=== PATIENT | male | born 1970 | race Caucasian/White ===

== ENCOUNTER 2016-10-15 13:36 | Observation (INO) | payer OTHER ==
[~2016-10-15] VITALS: Ht 182.9 cm; Wt 106.8 kg
[~2016-10-15 13:36] MED LIST: CYCL5TAB PO; HYDR-2758 PO; SIMV5TAB PO; ZOLP5TAB PO
[2016-10-15 14:18] LABS: BASO # 0.1 x10^3/uL (0.0-0.2); BASO % 1 % (0-3); EOS % 1 % (0-3); HEMATOCRIT 43.6 % (39.0-53.0); HEMOGLOBIN 14.8 g/dL (13.0-17.5); LYMPH # 1.9 x10^3/uL (1.0-4.8); LYMPH % 17 % (24-48); MEAN CORPUSCULAR HEMOGLOBIN 31 pg (25-35); MEAN CORPUSCULAR HGB CONC 34 g/dL (31-37); MEAN CORPUSCULAR VOLUME 90 fL (79-100); MONO % 9 % (0-9); NEUT % 73 % (31-73); PLATELET COUNT 277 x10^3/uL (140-400); RED BLOOD COUNT 4.87 x10^6/uL (4.30-5.70); WHITE BLOOD COUNT 11.5 x10^3/uL (4.0-11.0)
[2016-10-15 14:29] LABS: CALCIUM 9.3 mg/dL (8.5-10.1); CREATININE 1.5 mg/dL (0.7-1.3); GFR 50.8
[2016-10-15 14:36] LABS: POTASSIUM 2.7 mmol/L (3.5-5.1)
--- NOTE | 2016-10-15 14:38 | RAD ---
Exam performed: 2 views of the chest. Indication: chest pain Date of Service:10/15/2016 4:06 PM . Comparison : None available Findings: PA and lateral radiographs of the chest reveal a normal cardiomediastinal contour. The lungs are clear. No pleural fluid is seen. The visualized osseous structures are unremarkable. Impression: Radiographically normal chest.
[2016-10-15] MEDS: NITROGLYCERIN SUBLINGUAL 0.4 MG BOTTLE OF 25. SL PRN ×5 (15:00→20:48)
[2016-10-15] MEDS ORDERED: ASPIRIN CHEWABLE 81 MG TABLET. PO ONE (15:00)
[2016-10-15] MEDS ORDERED: ONDANSETRON PF 4 MG/2 ML VIAL. IV ONE (15:15)
--- NOTE | 2016-10-15 15:24 | EKG ---
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
[2016-10-15] MEDS ORDERED: POTASSIUM CHLORIDE 20 MEQ TABLET.ER. PO ONE ×2 (15:30→22:00)
--- NOTE | 2016-10-15 15:33 | PHYS DOC ---
Past Medical History Past Medical History: Anxiety, Bipolar, Depression, High Cholesterol, Hypertension Additional Past Medical Histor: Right sciatica Past Surgical History: Other Additional Past Surgical Histo: vasectomy, right knee scope, lasik, HERNIA Alcohol Use: Occasionally Drug Use: None Adult General Chief Complaint Chief Complaint: CHEST PAIN HPI HPI Patient is a 45 year old male who presents with complaints of 5 left-sided chest pain radiating to the left side of his neck associated with shortness of breath. Patient experienced some pain that he describes as being exertional. He' s had at least 2 episodes today both of them associated with exertion. Patient denies any back pain, abdominal pain, lower extremity pain. Patient hasn't had any recent stress test or catheterization's. Patient has had multiple recent stressors, admits to suffering from anxiety. However the patient is most concerned about the fact that the pain was exertional. Currently rates the chest pain is a 2 Review of Systems Review of Systems Constitutional: Denies fever or chills [] HENT: Denies nasal congestion or sore throat [] Respiratory: Has shortness of breath initially but currently is at baseline Cardiovascular: No additional information not addressed in HPI [] GI: Denies abdominal pain, nausea, vomiting, bloody stools or diarrhea [] : Denies dysuria or hematuria [] Musculoskeletal: Denies back pain or joint pain [] Integument: Denies rash or skin lesions [] Neurologic: Denies headache, focal weakness or sensory changes [] Endocrine: Denies polyuria or polydipsia [] Current Medications Current Medications Current Medications Medications (Trade) Dose Ordered Sig/Anna Marie Start Time Stop Time Status Last Admin Dose Admin Aspirin (Children'S Aspirin) 324 mg 1X ONCE 10/15/16 15:00 10/15/16 15:01 DC 10/15/16 14:59 324 MG Nitroglycerin (Nitrostat) 0.4 mg PRN Q5MIN PRN 10/15/16 15:00 10/15/16 15:14 0.4 MG Ondansetron HCl (Zofran) 4 mg 1X ONCE 10/15/16 15:15 10/15/16 15:16 DC 10/15/16 15:10 4 MG Potassium Chloride (Klor-Con) 40 meq 1X ONCE 10/15/16 15:30 10/15/16 15:31 DC Allergies Allergies Allergies Coded Allergies Type Severity Reaction Last Updated Verified No Known Drug Allergies 12/23/15 No Physical Exam Physical Exam Constitutional: Well developed, well nourished, no acute distress, non-toxic appearance. [] HENT: Normocephalic, atraumatic, oropharynx moist, no oral exudates, nose normal. [] Eyes: EOMI, conjunctiva normal, no discharge. [] Neck: Normal range of motion, no tenderness, supple, no stridor. No JVD Cardiovascular:Heart rate regular rhythm, no murmur, normal perfusion, no peripheral edema Lungs & Thorax: Bilateral breath sounds clear to auscultation, no tachypnea Abdomen: Bowel sounds normal, soft, no tenderness, no masses, no pulsatile masses. [] Skin: Warm, dry, no erythema, no rash. [] Back: No tenderness, no CVA tenderness. [] Extremities: No tenderness, ROM intact, no edema, no signs of DVT Neurologic: Alert and oriented X 3, normal motor function, no focal deficits noted. [] Psychologic: Affect normal, judgement normal, mood normal. [] Current Patient Data Vital Signs Vital Signs Date Time Temp Pulse Resp B/P (MAP) Pulse Ox O2 Delivery O2 Flow Rate FiO2 10/15/16 15:20 97 16 107/57 (74) 93 Room Air 10/15/16 13:40 98.5 98.5 Lab Values Laboratory Tests Test 10/15/16 13:50 White Blood Count 11.5 x10^3/uL (4.0-11.0) H Red Blood Count 4.87 x10^6/uL (4.30-5.70) Hemoglobin 14.8 g/dL (13.0-17.5) Hematocrit 43.6 % (39.0-53.0) Mean Corpuscular Volume 90 fL (79-100) Mean Corpuscular Hemoglobin 31 pg (25-35) Mean Corpuscular Hemoglobin Concent 34 g/dL (31-37) Red Cell Distribution Width 13.0 % (11.5-14.5) Platelet Count 277 x10^3/uL (140-400) Neutrophils (%) (Auto) 73 % (31-73) Lymphocytes (%) (Auto) 17 % (24-48) L Monocytes (%) (Auto) 9 % (0-9) Eosinophils (%) (Auto) 1 % (0-3) Basophils (%) (Auto) 1 % (0-3) Neutrophils # (Auto) 8.5 x10^3uL (1.8-7.7) H Lymphocytes # (Auto) 1.9 x10^3/uL (1.0-4.8) Monocytes # (Auto) 1.0 x10^3/uL (0.0-1.1) Eosinophils # (Auto) 0.1 x10^3/uL (0.0-0.7) Basophils # (Auto) 0.1 x10^3/uL (0.0-0.2) D-Dimer (Devika) < 0.27 ug/mlFEU Sodium Level 139 mmol/L (136-145) Potassium Level 2.7 mmol/L (3.5-5.1) *L Chloride Level 98 mmol/L (98-107) Carbon Dioxide Level 26 mmol/L (21-32) Anion Gap 15 (6-14) H Blood Urea Nitrogen 10 mg/dL (8-26) Creatinine 1.5 mg/dL (0.7-1.3) H Estimated GFR (Cockcroft-Gault) 50.8 Glucose Level 108 mg/dL (70-99) H Calcium Level 9.3 mg/dL (8.5-10.1) Troponin I Quantitative < 0.017 ng/mL (0.000-0.055) Laboratory Tests 10/15/16 13:50 Laboratory Tests 10/15/16 13:50 EKG EKG 1345 sinus tachycardia, no stemi, 102 1532 85, SR, no stemi Radiology/Procedures Radiology/Procedures Noted this is an chest x-ray read by radiologist that is found to be unremarkable Course & Med Decision Making Course & Med Decision Making Pertinent Labs and Imaging studies reviewed. (See chart for details) and they have basically discussed with the patient and he is agreeable for admission. Patient had mild improvement after nitroglycerin but then pain returned and is currently still [address] Xander castelan for admission at 1541, call back at 1551 agrees with admission and requests consult w Dr Rogers. [] Dragon Disclaimer Dragon Disclaimer This electronic medical record was generated, in whole or in part, using a voice recognition dictation system. Departure Departure Impression: Primary Impression: Exertional chest pain Disposition: 09 ADMITTED INPATIENT Admitting Physician: Xander Darden Condition: STABLE Referrals: XANDER DARDEN MD (PCP) Iva SOARES MD Oct 15, 2016 15:33
--- NOTE | 2016-10-15 15:35 | EKG ---
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
[2016-10-15] MEDS ORDERED: MORPHINE SULFATE 2 MG/ML DISP.SYRIN. IV ONE (16:00)
[2016-10-15] MEDS ORDERED: ONDANSETRON PF 4 MG/2 ML VIAL. IV PRN (16:15)
[2016-10-15] MEDS ORDERED: MORPHINE SULFATE 2 MG/ML DISP.SYRIN. IV PRN (16:15)
[2016-10-15] MEDS ORDERED: ACETAMINOPHEN 325 MG TABLET. PO PRN (16:15)
[2016-10-15 17:23] VITALS: BP 119/77
[2016-10-15] MEDS ORDERED: LAMO200T PO (17:44)
[2016-10-15] MEDS ORDERED: TIZA4CAP3 PO (17:44)
[2016-10-15] MEDS ORDERED: ARIP5TAB13 PO (17:44)
[2016-10-15] MEDS ORDERED: VENL75CA PO (17:44)
[2016-10-15] MEDS ORDERED: LORA0.5T96 PO (17:44)
[2016-10-15] MEDS ORDERED: OMEP40CA5 PO (17:44)
[2016-10-15] MEDS ORDERED: LOSA1TAB16 PO (17:44)
[2016-10-15] MEDS ORDERED: BUSP30TA PO (17:44)
[2016-10-15] MEDS ORDERED: AMLO10TA2 PO (17:44)
[2016-10-15 19:00] VITALS: BP 118/78
[2016-10-15] MEDS ORDERED: ZOLPIDEM 5 MG TABLET. PO PRN (19:00)
[2016-10-15] MEDS ORDERED: tiZANidine 4 MG TABLET. PO PRN (19:00)
[2016-10-15] MEDS ORDERED: CYCLOBENZAPRINE 10 MG TABLET. PO PRN (19:00)
[2016-10-15] MEDS: LORazepam 0.5 MG TABLET PO SCH (20:43)
[2016-10-15] MEDS: busPIRone 10 MG TABLET. PO SCH (20:43)
[2016-10-15] MEDS ORDERED: ARIPiprazole 5 MG TABLET PO SCH (21:00)
[2016-10-15] MEDS ORDERED: SIMVASTATIN 10 MG TABLET PO SCH (21:00)
[2016-10-15] MEDS ORDERED: NITROGLYCERIN OINT 1 GM PACKET. TP ONE (22:00)
[2016-10-15 22:30] VITALS: BP 117/77
[2016-10-16 03:00] VITALS: BP 149/73
[2016-10-16 05:49] LABS: BASO % 1 % (0-3); EOS % 2 % (0-3); HEMATOCRIT 39.8 % (39.0-53.0); HEMOGLOBIN 14.3 g/dL (13.0-17.5); LYMPH # 2.7 x10^3/uL (1.0-4.8); LYMPH % 31 % (24-48); MEAN CORPUSCULAR HEMOGLOBIN 32 pg (25-35); MEAN CORPUSCULAR HGB CONC 36 g/dL (31-37); MEAN CORPUSCULAR VOLUME 88 fL (79-100); MONO % 10 % (0-9); NEUT % 56 % (31-73); PLATELET COUNT 251 x10^3/uL (140-400); RED BLOOD COUNT 4.51 x10^6/uL (4.30-5.70); RED CELL DISTRIBUTION WIDTH 13.3 % (11.5-14.5); WHITE BLOOD COUNT 8.5 x10^3/uL (4.0-11.0)
[2016-10-16 06:15] LABS: CALCIUM 8.9 mg/dL (8.5-10.1); CREATININE 1.4 mg/dL (0.7-1.3); GFR 55.1; POTASSIUM 4.1 mmol/L (3.5-5.1)
[2016-10-16 07:00] VITALS: BP 132/86
[2016-10-16] MEDS ORDERED: PANTOPRAZOLE 40 MG TABLET.DR. PO SCH (07:30)
[2016-10-16] MEDS: busPIRone 10 MG TABLET. PO SCH (08:39)
[2016-10-16] MEDS ORDERED: ARIPiprazole 5 MG TABLET PO SCH ×2 (09:00→21:00)
[2016-10-16] MEDS ORDERED: hydroCHLOROthiazide 12.5 MG CAPSULE PO SCH (09:00)
[2016-10-16] MEDS ORDERED: LOSARTAN POTASSIUM 50 MG TABLET. PO SCH (09:00)
[2016-10-16] MEDS ORDERED: amLODIPine BESYLATE 10 MG TABLET PO SCH (09:00)
[2016-10-16] MEDS ORDERED: SIMVASTATIN 10 MG TABLET PO SCH ×2 (09:00)
[2016-10-16] MEDS ORDERED: lamoTRIgine 100 MG TABLET. PO SCH (09:00)
[2016-10-16] MEDS: LORazepam 0.5 MG TABLET PO SCH ×2 (09:00→13:21)
[2016-10-16] MEDS ORDERED: VENLAFAXINE XR 37.5 MG CAP.ER.24H. PO SCH (09:00)
--- NOTE | 2016-10-16 09:02 | PDOC ---
Provider Note Provider Note [id number] XANDER DARDEN MD Oct 16, 2016 09:02
--- NOTE | 2016-10-16 09:26 | HP ---
ADMIT DATE: 10/15/2016 CHIEF COMPLAINT: Left-sided chest pain. HISTORY OF PRESENT ILLNESS: A 45-year-old white male with history of hypertension and bipolar disorder, has been having intermittent left-sided chest pain at rest over the last 2 weeks. The pain would come and go and not be radiating or associated with diaphoresis, heartburn, cough, nausea or any other symptoms. In the last few days, the chest pain has been exertional and relieved by rest and he came to the office for evaluation. EKG and exam was normal. He was sent to the ER for evaluation where the same exam and labs and EKG were done, and troponins have been negative x 3. He has had some mild chest pain over the last several hours, but no severe episodes. He does admit to a great deal of personal stress going on in his life at this time. PAST MEDICAL HISTORY: He takes multiple meds from a psychiatrist for bipolar disorder and anxiety. He is on antihypertensives for several years and simvastatin. No allergies. No surgery. No prior cardiac history. 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 FAMILY HISTORY: Unremarkable. No history of coronary artery disease or diabetes. REVIEW OF SYSTEMS: No other complaints. OBJECTIVE: ENT: All within normal limits. NECK: No masses, nodes or bruits. LUNGS: Clear. CARDIOVASCULAR: Regular rate. No irregular beat, murmur, rub or tachycardia. Chest wall is nontender. ABDOMEN: Benign, soft and nontender. EXTREMITIES: Unremarkable. Good pedal pulses. NEUROLOGIC: Physiologic. Mental status is mildly anxious, but appropriate, responsive and focal and oriented x 4. ASSESSMENT: Exertional chest pain, and otherwise relatively low risk factors. Could have coronary artery disease, but the odds seem low given his risk factor, statin use and antihypertensive control. He is also hypokalemic. Lots of recent personal stress could be contributing. PLAN: Stress echo, potassium replacement. XANDER DARDEN MD DR: KATARZYNA/emerson JOB#: [id number] / [id number]
[2016-10-16 13:10] VITALS: BP 126/81
--- NOTE | 2016-10-16 13:25 | PDOC2 ---
CONSULT Date of Consult Date of Consult DATE: 10/16/16 TIME: 13:17 Reason for Consult Reason for Consult: chest pain Referring Physician Referring Physician: Fredi Castano MD Identification/Chief Complaint Chief Complaint exertional chest pain Problems: History of Present Illness Reason for Visit: Mr. Arellano presents due to episodic chest pain at rest for 2 weeks radiating to the L. side of his neck assoc. with SOB. He has a history of HTN , hyperlipidemia, and GERD. He denies diaphoresis, heartburn, cough, nausea, or any other symptoms. However, over the last few days, it has been exertional in nature and relieved by rest. He states he has had 2 episodes today both associated with exertion. In the ED, EKG was normal and troponin x3 was undetectable. He admits to a lot of stress at this time in his life. He has a history of anxiety and bipolar disorder for which he takes multiple medications. He has never had anything like this before. He denies any significant cardiac history and denies recent stress test or catheterization, does not use tobacco or alcohol, and denies any hx of coronary artery disease, DBM, or any other disorders. Rates chest pain 2/10. Past Medical History Past Medical History Other: R. sciatica Cardiovascular: HTN, Hyperlipidemia GI: GERD Psych: Anxiety, Bipolar, Depression Past Surgical History Past Surgical History vasectomy, R. knee scope, lasik, hernia Social History No ALCOHOL: occassional Drugs: None Lives: with Family Current Problem List Problem List Problems Medical Problems: (1) Exertional chest pain Status: Acute Current Medications Current Medications Current Medications Aspirin (Children'S Aspirin) 324 mg 1X ONCE PO Last administered on 10/15/16 14:59; Start 10/15/16 at 15:00; Stop 10/15/16 at 15:01; Status DC Nitroglycerin (Nitrostat) 0.4 mg PRN Q5MIN PRN SL CHEST PAIN Last administered on 10/15/16 15:14; Start 10/15/16 at 15:00 Ondansetron HCl (Zofran) 4 mg 1X ONCE IV Last administered on 10/15/16 15:10 ; Start 10/15/16 at 15:15; Stop 10/15/16 at 15:16; Status DC Potassium Chloride (Klor-Con) 40 meq 1X ONCE PO Last administered on 16:08; Start 10/15/16 at 15:30; Stop 10/15/16 at 15:31; Status DC Morphine Sulfate 2 mg 1X ONCE IV Last administered on 10/15/16 16:09; Start 10/15/16 at 16:00; Stop 10/15/16 at 16:01; Status DC Ondansetron HCl (Zofran) 4 mg PRN Q8HRS PRN IV NAUSEA/VOMITING; Start 10/15/16 at 16:15; Stop 10/16/16 at 16:14 Morphine Sulfate 2 mg PRN Q2HR PRN IV PAIN Last administered on 10/15/16 19:21 ; Start 10/15/16 at 16:15; Stop 10/16/16 at 16:14 Acetaminophen (Tylenol) 650 mg PRN Q4HRS PRN PO FEVER; Start 10/15/16 at 16:15 ; Stop 10/16/16 at 16:14 Nitroglycerin (Nitrostat) 0.4 mg PRN Q5MIN PRN SL CHEST PAIN Last administered on 10/15/16 20:48; Start 10/15/16 at 16:15; Stop 10/16/16 at 16:14 Amlodipine Besylate (Norvasc) 10 mg DAILY PO ; Start 10/16/16 at 09:00 Aripiprazole (Abilify) 5 mg DAILY PO ; Start 10/16/16 at 09:00; Stop 10/16/16 at 09:00; Status DC Lorazepam (Ativan) 0.5 mg TID PO Last administered on 10/15/16 20:43; Start at 21:00 Simvastatin (Zocor) 10 mg QHS PO ; Start 10/15/16 at 21:00; Stop 10/15/16 at 21: 00; Status DC Zolpidem Tartrate (Ambien) 5 mg PRN QHS PRN PO INSOMNIA; Start 10/15/16 at 19: 00 Buspirone HCl (Buspar) 30 mg BID PO Last administered on 10/16/16 08:39; Start 10/15/16 at 21:00 Cyclobenzaprine HCl (Flexeril) 5 mg PRN TID PRN PO MUSCLE SPASMS; Start at 19:00 Lamotrigine (LaMICtal) 400 mg DAILY PO Last administered on 10/16/16 08:40; Start 10/16/16 at 09:00 Pantoprazole Sodium (Protonix) 40 mg DAILYAC PO Last administered on 10/16/16 08:38; Start 10/16/16 at 07:30 Tizanidine HCl (Zanaflex) 4 mg PRN Q8HRS PRN PO MUSCLE SPASMS; Start 10/15/16 at 19:00 Venlafaxine HCl (Effexor Xr) 75 mg DAILY PO Last administered on 10/16/16 08: 40; Start 10/16/16 at 09:00 Losartan Potassium (Cozaar) 50 mg DAILY PO ; Start 10/16/16 at 09:00 Hydrochlorothiazide (Microzide) 12.5 mg DAILY PO ; Start 10/16/16 at 09:00 Aripiprazole (Abilify) 5 mg DAILY PO Last administered on 10/15/16 21:00; Start 10/15/16 at 21:00; Stop 10/15/16 at 22:34; Status DC Simvastatin (Zocor) 10 mg QHS PO ; Start 10/16/16 at 09:00; Stop 10/16/16 at 09: 00; Status DC Potassium Chloride (Klor-Con) 20 meq 1X ONCE PO Last administered on 22:00; Start 10/15/16 at 22:00; Stop 10/15/16 at 22:01; Status DC Nitroglycerin (Nitro-Bid Oint) 0.5 inch 1X ONCE TP Last administered on 22:00; Start 10/15/16 at 22:00; Stop 10/15/16 at 22:01; Status DC Aripiprazole (Abilify) 5 mg HS PO ; Start 10/16/16 at 21:00 Simvastatin (Zocor) 10 mg DAILY PO ; Start 10/16/16 at 09:00 Active Scripts Active Cyclobenzaprine Hcl 5 Mg Tablet 1 Tab PO TID PRN Reported Ativan (Lorazepam) 0.5 Mg Tablet 0.5 Mg PO TID Abilify (Aripiprazole) 5 Mg Tablet 5 Mg PO Buspirone Hcl 30 Mg Tablet 1 Tab PO BID Effexor Xr (Venlafaxine Hcl) 75 Mg Cap.er.24h 1 Cap PO DAILY Lamotrigine 200 Mg Tablet 2 Tab PO DAILY Omeprazole 40 Mg Capsule.dr 1 Cap PO DAILY Losartan-Hctz 50-12.5 Mg Tab (Losartan/Hydrochlorothiazide) 1 Each Tablet Tab PO DAILY Amlodipine Besylate 10 Mg Tablet 10 Mg PO DAILY Zanaflex (Tizanidine Hcl) 4 Mg Capsule 4 Mg PO TID PRN Ambien (Zolpidem Tartrate) 5 Mg Tablet 5 Mg PO PRN QHS PRN Zocor (Simvastatin) 5 Mg Tablet 10 Mg PO DAILY Allergies Allergies: Coded Allergies: No Known Drug Allergies (Unverified , 12/23/15) ROS PSYCHOLOGICAL ROS: YES: Anxiety, Depression Cardiovascular: yes Chest Pain Physical Exam General: Alert, Cooperative, No acute distress HEENT: Atraumatic Lungs: Clear to auscultation Heart: Regular rate, Normal S1, Normal S2, No murmurs Abdomen: Normal bowel sounds Extremities: No clubbing, No cyanosis, No edema, Normal pulses, No tenderness/ swelling Skin: No significant lesion Neuro: Normal gait, Normal speech, Strength at 5/5 X4 ext Psych/Mental Status: Other (anxious) MUSCULOSKELETAL: No joint tenderness, No deformity, No swelling Vitals VITALS Vital Signs Date Time Temp Pulse Resp B/P (MAP) Pulse Ox O2 Delivery O2 Flow Rate FiO2 10/16/16 13:10 96.8 95 18 126/81 (96) 95 Room Air 96.8 Labs Labs Laboratory Tests Test 10/15/16 13:50 10/15/16 17:57 10/15/16 22:05 10/16/16 04:30 White Blood Count 11.5 x10^3/uL (4.0-11.0) 8.5 x10^3/uL (4.0-11.0) Red Blood Count 4.87 x10^6/uL (4.30-5.70) 4.51 x10^6/uL (4.30-5.70) Hemoglobin 14.8 g/dL (13.0-17.5) 14.3 g/dL (13.0-17.5) Hematocrit 43.6 % (39.0-53.0) 39.8 % (39.0-53.0) Mean Corpuscular Volume 90 fL (79-100) 88 fL (79-100) Mean Corpuscular Hemoglobin 31 pg (25-35) 32 pg (25-35) Mean Corpuscular Hemoglobin Concent 34 g/dL (31-37) 36 g/dL (31-37) Red Cell Distribution Width 13.0 % (11.5-14.5) 13.3 % (11.5-14.5) Platelet Count 277 x10^3/uL (140-400) 251 x10^3/uL (140-400) Neutrophils (%) (Auto) 73 % (31-73) 56 % (31-73) Lymphocytes (%) (Auto) 17 % (24-48) 31 % (24-48) Monocytes (%) (Auto) 9 % (0-9) 10 % (0-9) Eosinophils (%) (Auto) 1 % (0-3) 2 % (0-3) Basophils (%) (Auto) 1 % (0-3) 1 % (0-3) Neutrophils # (Auto) 8.5 x10^3uL (1.8-7.7) 4.8 x10^3uL (1.8-7.7) Lymphocytes # (Auto) 1.9 x10^3/uL (1.0-4.8) 2.7 x10^3/uL (1.0-4.8) Monocytes # (Auto) 1.0 x10^3/uL (0.0-1.1) 0.9 x10^3/uL (0.0-1.1) Eosinophils # (Auto) 0.1 x10^3/uL (0.0-0.7) 0.2 x10^3/uL (0.0-0.7) Basophils # (Auto) 0.1 x10^3/uL (0.0-0.2) 0.0 x10^3/uL (0.0-0.2) D-Dimer (Devika) < 0.27 ug/mlFEU Sodium Level 139 mmol/L (136-145) 141 mmol/L (136-145) Potassium Level 2.7 mmol/L (3.5-5.1) 4.1 mmol/L (3.5-5.1) Chloride Level 98 mmol/L (98-107) 102 mmol/L (98-107) Carbon Dioxide Level 26 mmol/L (21-32) 32 mmol/L (21-32) Anion Gap 15 (6-14) 7 (6-14) Blood Urea Nitrogen 10 mg/dL (8-26) 10 mg/dL (8-26) Creatinine 1.5 mg/dL (0.7-1.3) 1.4 mg/dL (0.7-1.3) Estimated GFR (Cockcroft-Gault) 50.8 55.1 Glucose Level 108 mg/dL (70-99) 91 mg/dL (70-99) Calcium Level 9.3 mg/dL (8.5-10.1) 8.9 mg/dL (8.5-10.1) Troponin I Quantitative < 0.017 ng/mL (0.000-0.055) < 0.017 ng/mL (0.000-0.055) < 0.017 ng/mL (0.000-0.055) Lactic Acid Level 0.9 mmol/L (0.4-2.0) Laboratory Tests Test 10/15/16 13:50 10/15/16 17:57 10/15/16 22:05 10/16/16 04:30 White Blood Count 11.5 x10^3/uL (4.0-11.0) 8.5 x10^3/uL (4.0-11.0) Red Blood Count 4.87 x10^6/uL (4.30-5.70) 4.51 x10^6/uL (4.30-5.70) Hemoglobin 14.8 g/dL (13.0-17.5) 14.3 g/dL (13.0-17.5) Hematocrit 43.6 % (39.0-53.0) 39.8 % (39.0-53.0) Mean Corpuscular Volume 90 fL (79-100) 88 fL (79-100) Mean Corpuscular Hemoglobin 31 pg (25-35) 32 pg (25-35) Mean Corpuscular Hemoglobin Concent 34 g/dL (31-37) 36 g/dL (31-37) Red Cell Distribution Width 13.0 % (11.5-14.5) 13.3 % (11.5-14.5) Platelet Count 277 x10^3/uL (140-400) 251 x10^3/uL (140-400) Neutrophils (%) (Auto) 73 % (31-73) 56 % (31-73) Lymphocytes (%) (Auto) 17 % (24-48) 31 % (24-48) Monocytes (%) (Auto) 9 % (0-9) 10 % (0-9) Eosinophils (%) (Auto) 1 % (0-3) 2 % (0-3) Basophils (%) (Auto) 1 % (0-3) 1 % (0-3) Neutrophils # (Auto) 8.5 x10^3uL (1.8-7.7) 4.8 x10^3uL (1.8-7.7) Lymphocytes # (Auto) 1.9 x10^3/uL (1.0-4.8) 2.7 x10^3/uL (1.0-4.8) Monocytes # (Auto) 1.0 x10^3/uL (0.0-1.1) 0.9 x10^3/uL (0.0-1.1) Eosinophils # (Auto) 0.1 x10^3/uL (0.0-0.7) 0.2 x10^3/uL (0.0-0.7) Basophils # (Auto) 0.1 x10^3/uL (0.0-0.2) 0.0 x10^3/uL (0.0-0.2) D-Dimer (Devika) < 0.27 ug/mlFEU Sodium Level 139 mmol/L (136-145) 141 mmol/L (136-145) Potassium Level 2.7 mmol/L (3.5-5.1) 4.1 mmol/L (3.5-5.1) Chloride Level 98 mmol/L (98-107) 102 mmol/L (98-107) Carbon Dioxide Level 26 mmol/L (21-32) 32 mmol/L (21-32) Anion Gap 15 (6-14) 7 (6-14) Blood Urea Nitrogen 10 mg/dL (8-26) 10 mg/dL (8-26) Creatinine 1.5 mg/dL (0.7-1.3) 1.4 mg/dL (0.7-1.3) Estimated GFR (Cockcroft-Gault) 50.8 55.1 Glucose Level 108 mg/dL (70-99) 91 mg/dL (70-99) Calcium Level 9.3 mg/dL (8.5-10.1) 8.9 mg/dL (8.5-10.1) Troponin I Quantitative < 0.017 ng/mL (0.000-0.055) < 0.017 ng/mL (0.000-0.055) < 0.017 ng/mL (0.000-0.055) Lactic Acid Level 0.9 mmol/L (0.4-2.0) Assessment/Plan Assessment/Plan Assessment: 1) Chest pain 2) HTN 3) Hyperlipidemia 4) Anxiety 5) GERD 6) Bipolar Plan: Chest pain is likely non-cardiac in nature, most likely related to anxiety and/ or GERD. EKG was unremarkable and troponin x3 was negative. Stress echo was negative for ischemia. It showed good hemodynamic response with good exercise tolerance, a normal LV EF with and without exertion. No segmental wall abnormalities were seen to suggest ischemia. I recommend that he follow up outpatient with GI regarding his GERD and continue to follow up with his psychiatrist regarding his anxiety. I have no further concerns at this time. Thank you for involving me in his care! LAURA VALDEZ MD Oct 16, 2016 13:25
--- NOTE | 2016-10-16 13:56 | CARD ---
APPROVED REPORT INDICATION Chest Pain Exertional chest pain RISK FACTORS Hypertension Hyperlipidemia Reason : Patient complained of pain PROCEDURE The patient underwent an exercise Stress Test using the Arias protocol. Blood pressure, heart rate, a nd EKG were monitored. An Echocardiogram was performed by landfill gas technician in four stages in quad fashion. At peak stress four se lected images were obtained and placed side by side with resting images for comparison. STRESS ECHO FINDINGS The resting Echocardiogram showed normal left ventricular contractility with an estimated Ejection Fr action of about 55 %. Normal augmentation of myocardial wall segments using a 16 segment model. Test Type: Exercise Stress Nurse/Tech: Neida Madden R.N. Test Indications: Chest pain. Cardiac History and Allergies: SEE EMR Medications: SEE EMR Medical History: SEE EMR Resting ECG: SR and no acute ST abnormality Resting Heart Rate: 71 bpm Resting Blood Pressure: 140/80mmHg Pretest Chest Pain: None Nurse/Tech Notes S1S2, lungs CTA, denied chest pain or SOA. Consent: The procedure was explained to the patient in lay terms. Informed consent was witnessed. Ace eout was entered into [facility]. History and Stress Test performed by Neida Madden R.N. Stress Symptoms C/O 4:10 chest pressure in L upper chest and shoulder. Nonanginal chest pain occurred (Severity , min duration). POST EXERCISE Reason for Termination: Reached target heart rate Target HR: 150 Max HR: 166 bpm 94% of Maximum Predicted HR: 176 bpm Exercise duration: 10:02 min:sec, 4 Stage Exercise capacity: 12.8METs Max Blood Pressure: 188/62mmHg Blood Pressure response to exercise: Normal blood pressure response during stress. Heart Rate response to exercise: Normal Chest Pain: Yes. 4:10 chest pain in MICHI chest and shoulder Arrhythmia: No. ST Change: No. INTERPRETATION Stress EKG Conclusion: No acute changes were noted. Preliminary Notification Critical Value: No <Conclusion> This is a negative stress echocardiogram test for ischemia in a pt that has a good hemodynamic respon se, good exercise tolerance and a normal LV EF at rest and with exercise. No segmental wall motion abnormalities were seen to suggest ischemia.
[2016-10-16 15:32] VITALS: BP 115/73
[2016-10-16] MEDS ORDERED: RANI300T3 PO (16:15)
[2016-10-16] MEDS ORDERED: OMEP40CA5 PO (16:15)
--- NOTE | 2016-10-16 18:28 | DS ---
DATE OF DISCHARGE: 10/16/2016 HOSPITAL SUMMARY: A 45-year-old white male who had 2 weeks of left-sided chest pain with a few days of exertional component to the chest pain. Troponins and EKGs and all laboratory studies were unremarkable as was the chest x-ray. He did exercise echocardiogram, which all looks within normal limits, did not reproduce pain and no ischemic changes on the EKG or echo was seen. He was comfortable to be followed as an outpatient as a noncardiac source of pain. FINAL DIAGNOSES: Chest pain, noncardiac. OPERATIONS, PROCEDURES, COMPLICATIONS: None. CONSULTATIONS: Dr. Rogers. DISPOSITION: Continue all home meds including his antianxiety meds and follow up in the office with Dr. Castano in 2 weeks for further evaluation. Continued symptoms would warrant consideration for upper endoscopy or further other testing. XNADER CASTANO MD DR: KATARZYNA/emerson JOB#: [id number] / [id number]
== END 2016-10-16 16:40 | disposition home or self-care (01) ==
LOC: ER 13:36 → 5 NORTH 15:53
PROVIDERS: ADMIT Family Medicine; ATTEND Family Medicine
DX: R07.89 Other chest pain (principal); F41.9 Anxiety disorder, unspecified; F31.9 Bipolar disorder, unspecified; I10 Essential (primary) hypertension; E87.6 Hypokalemia; K21.9 Gastro-esophageal reflux disease without esophagitis; E78.00 Pure hypercholesterolemia, unspecified; E78.5 Hyperlipidemia, unspecified
CPT/HCPCS: 36415; 71020; 80048; 83605; 84484; 85025; 85379; 93005; 93017; 93350; 96374; 96375; 96376; G0378; G0379; J2270; J2405

== ENCOUNTER 2018-03-14 15:10 | Emergency (ER) | payer OTHER ==
[~2018-03-14] VITALS: Ht 182.9 cm; Wt 106.6 kg
[~2018-03-14 15:10] MED LIST changes: +AMLO10TA6 PO; +ARIP5TAB13 PO; +BUSP30TA PO; -HYDR-2758 PO; +HYDR-2761 PO; +LAMO200T2 PO; +LORA0.5T96 PO; +LOSA1TAB19 PO; +OMEP40CA5 PO; +RANI300T3 PO; +TIZA4CAP3 PO; +VENL75CA PO
[2018-03-14] MEDS ORDERED: tiZANidine 4 MG TABLET. PO ONE (15:30)
[2018-03-14] MEDS ORDERED: DEXAMETHASONE 4 MG TABLET PO ONE (15:30)
[2018-03-14] MEDS ORDERED: HYDR-3164 PO (15:42)
[2018-03-14] MEDS ORDERED: METH4TAB2 PO (15:42)
[2018-03-14] MEDS ORDERED: TIZA4CAP3 PO (15:42)
--- NOTE | 2018-03-14 15:42 | PHYS DOC ---
Past Medical History Past Medical History: Anxiety, Bipolar, Depression, High Cholesterol, Hypertension Additional Past Medical Histor: Right sciatica Past Surgical History: Other Additional Past Surgical Histo: vasectomy, right knee scope, lasik, HERNIA Alcohol Use: Occasionally Drug Use: None Adult General Chief Complaint Chief Complaint: BACK PAIN OR INJURY [facility] HPI Patient is a 47 year old male who presents with Percocet here in the emergency department and was walking when he turned to speak with another staff member and slipped and fell landing on his left lower back and catching himself with his right hand wrist. Patient states he has known lumbar and sacral disc issues and has had sciatica in the past. Patient states that he has left lower back pain that is radiating down the back of his left buttock down to the knee pain is burning. Patient states that his left outer foot is numb. Patient states this has happened before in the past. Review of Systems Review of Systems Constitutional: Denies fever or chills [] Eyes: Denies change in visual acuity, redness, or eye pain [] HENT: Denies nasal congestion or sore throat [] Respiratory: Denies cough or shortness of breath [] Cardiovascular: No additional information not addressed in HPI [] GI: Denies abdominal pain, nausea, vomiting, bloody stools or diarrhea [] : Denies dysuria or hematuria [] Musculoskeletal: Right lumbar back pain with sciatica , upper between shoulder blade sharp pain or joint pain [] Integument: Denies rash or skin lesions [] Neurologic: Denies headache, focal weakness or sensory changes [] All other systems were reviewed and found to be within normal limits, except as documented in this note. Current Medications Current Medications Current Medications Medications (Trade) Dose Ordered Sig/Anna Marie Start Time Stop Time Status Last Admin Dose Admin Acetaminophen/ Hydrocodone Bitart (Lortab 5/325) 1 tab 1X ONCE 03/14/18 16:15 03/14/18 16:16 DC 03/14/18 16:23 1 TAB Dexamethasone (Decadron) 8 mg 1X ONCE 03/14/18 15:30 03/14/18 15:31 DC 03/14/18 15:43 8 MG Ibuprofen (Motrin) 800 mg 1X ONCE 03/14/18 16:15 03/14/18 16:16 DC 03/14/18 16:23 800 MG Tizanidine HCl (Zanaflex) 4 mg 1X ONCE 03/14/18 15:30 03/14/18 15:31 DC 03/14/18 15:43 4 MG Allergies Allergies Allergies Coded Allergies Type Severity Reaction Last Updated Verified No Known Drug Allergies 12/23/15 No Physical Exam Physical Exam Constitutional: Well developed, well nourished, no acute distress, non-toxic appearance. [] HENT: Normocephalic, atraumatic, bilateral external ears normal, oropharynx moist, no oral exudates, nose normal. [] Eyes: PERRLA, EOMI, conjunctiva normal, no discharge. [] Neck: Normal range of motion, no tenderness, supple, no stridor. [] Cardiovascular:Heart rate regular rhythm, no murmur [] Lungs & Thorax: Bilateral breath sounds clear to auscultation [] Abdomen: Bowel sounds normal, soft, no tenderness, no masses, no pulsatile masses. [] Skin: Warm, dry, no erythema, no rash. [] Back: Left lumbar tenderness, no CVA tenderness. [] Extremities: no tenderness, no cyanosis, no clubbing, ROM intact, no edema. [] Neurologic: Alert and oriented X 3, normal motor function, normal sensory function, no focal deficits noted. [] Psychologic: Affect normal, judgement normal, mood normal. [] Current Patient Data Vital Signs Vital Signs Date Time Temp Pulse Resp B/P (MAP) Pulse Ox O2 Delivery O2 Flow Rate FiO2 03/14/18 15:10 98.1 85 18 147/85 (105) 97 Room Air 98.1 EKG EKG [] Radiology/Procedures Radiology/Procedures CT Lumbar Impressions: [facility] [address] [place], [place] [id number] IMAGING REPORT Signed PATIENT: LYRIC ALARCON ACCOUNT: [id number] : 1970 LOCATION: ER AGE: 47 SEX: M EXAM STATUS: REG ER ORD. PHYSICIAN: IDANIA ASTORGA APRN REASON: fall PROCEDURE: CT CERVICAL SPINE WO CONTRAST PQRS Compliance statement: One or more of the following individualized dose reduction techniques were utilized for this examination: 1. Automated exposure control. 2. Adjustment of the mA and/or kV according to patient size. 3. Use of iterative reconstruction technique. Indication:FALL. NECK, UPPER AND LOWER BACK INJURY AND PAIN TECHNIQUE: CT of the cervical spine without IV contrast with multiplanar reformats. COMPARISON:None FINDINGS: The cervical spine demonstrates straightening. This could be due to muscle spasm or positioning. Atlantoaxial joint interval is preserved. No compression deformity. Facet joints are in normal anatomic alignment. No acute fractures. No significant intervertebral disc space narrowing. Noncontrast appearance of the neck soft tissue is within normal limits. Clear lung apices. IMPRESSION: No acute cervical spine fractures. Electronically signed by: Jens Luna DO (03/14/2018 5:26 PM) [facility] DICTATED and SIGNED BY: JENS LUNA DO DATE: 03/14/181723 [facility] [address] [place] [address] IMAGING REPORT Signed PATIENT: LYRIC ALARCON ACCOUNT: [id number] : 1970 LOCATION: ER AGE: 47 SEX: M EXAM STATUS: REG ER ORD. PHYSICIAN: IDANIA ASTORGA APRN REASON: fall PROCEDURE: CT THORACIC SPINE WO CONTRAST PQRS Compliance statement: One or more of the following individualized dose reduction techniques were utilized for this examination: 1. Automated exposure control. 2. Adjustment of the mA and/or kV according to patient size. 3. Use of iterative reconstruction technique. INDICATION: Trauma. Back pain. TECHNIQUE: CT of the thoracic and lumbar spine with multiplanar reformats COMPARISON: None FINDINGS: Thoracic spine: The thoracic spine is in normal anatomic alignment. No compression deformity. Facet joints are in normal anatomic alignment. No acute fractures. Visualized lungs are clear. Lumbar spine: Lumbar spine is in normal anatomic alignment. No acute fractures. No compression deformity. Facet joints are in normal anatomic alignment. IMPRESSION: No acute findings. Electronically signed by: Jens Luna DO (03/14/2018 5:33 PM) [facility] DICTATED and SIGNED BY: JENS LUNA DO DATE: 03/14/18 172 Course & Med Decision Making Course & Med Decision Making Patient is a 47 year old male who presents with Percocet here in the emergency department and was walking when he turned to speak with another staff member and slipped and fell landing on his right lower back and catching himself with his left hand/ wrist. Patient states he has known lumbar and sacral disc issues and has had sciatica in the past. Patient states that he has Right lower back pain that is radiating down the back of his left buttock down to the knee pain is burning. Patient states that his Right outer foot is numb. Patient is also having upper in the shoulder blades sharp pain does not radiate. Range of motion is intact in his neck. No visual changes. Did not hit his head. Denies LOC. Denies nausea, vomiting. There is no bony focal point tenderness. Patient states this right-sided low back pain right sciatica has happened before in the past. Walks with steady gait. Moves all extremities with equal strength. Can sit and stand without needing assistance. There is some tenderness to the left back. There is no bruising or swelling to her left back of the foot. Patient states his last MRI of his back was in 2014. I have ordered the patient a muscle relaxer and a steroid to help with inflammation in the ED. He will also get a CT in the ED. I will send him home with muscle relaxers and pain medication. He will need to follow-up with his primary care doctor. CTs show no acute findings. Dragon Disclaimer Dragon Disclaimer This electronic medical record was generated, in whole or in part, using a voice recognition dictation system. Departure Departure Impression: Primary Impression: Left-sided low back pain with sciatica Additional Impression: Fall Disposition: 01 HOME, SELF-CARE Condition: STABLE Referrals: XANDER DARDEN MD (PCP) Patient Instructions: Fall Prevention and Home Safety, Low Back Sprain with [facility], Sciatica with [facility] Additional Instructions: Follow-up with your doctor this week. Take medications as prescribed. Scripts Hydrocodone/Apap 5-325 (NORCO 5-325 TABLET) 1 Each Tablet 1 TAB PO PRN Q6HRS PRN for PAIN, #15 TAB 0 Refills Prov: IDANIA ASTORGA [employer] 03/14/18 Tizanidine Hcl (ZANAFLEX) 4 Mg Capsule 4 MG PO TID PRN for MUSCLE SPASMS for 10 Days, #30 CAP Prov: IDANIA ASTORGA [employer] 03/14/18 Methylprednisolone (MEDROL) 4 Mg Tab.ds.pk 1 PKG PO UD, #1 PKG Prov: IDANIA ASTORGA [employer] 03/14/18 Problem Qualifiers Primary Impression: Left-sided low back pain with sciatica Chronicity: acute Sciatica laterality: sciatica of left side Qualified Codes: M54.42 - Lumbago with sciatica, left side Additional Impression: Fall Encounter type: initial encounter Qualified Codes: W19.XXXA - Unspecified fall, initial encounter IDANIA ASTORGA [employer] Mar 14, 2018 15:42
[2018-03-14] MEDS ORDERED: IBUPROFEN 400 MG TABLET. PO ONE (16:15)
[2018-03-14] MEDS ORDERED: HYDROcodone/APAP 5/325MG 1 TAB TABLET PO ONE (16:15)
--- NOTE | 2018-03-14 17:31 | RAD ---
PQRS Compliance statement: One or more of the following individualized dose reduction techniques were utilized for this examination: 1. Automated exposure control. 2. Adjustment of the mA and/or kV according to patient size. 3. Use of iterative reconstruction technique. Indication:FALL. NECK, UPPER AND LOWER BACK INJURY AND PAIN TECHNIQUE: CT of the cervical spine without IV contrast with multiplanar reformats. COMPARISON:None FINDINGS: The cervical spine demonstrates straightening. This could be due to muscle spasm or positioning. Atlantoaxial joint interval is preserved. No compression deformity. Facet joints are in normal anatomic alignment. No acute fractures. No significant intervertebral disc space narrowing. Noncontrast appearance of the neck soft tissue is within normal limits. Clear lung apices. IMPRESSION: No acute cervical spine fractures. Electronically signed by: Jens Luna DO (03/14/2018 5:26 PM) [facility]
--- NOTE | 2018-03-14 17:38 | RAD ---
PQRS Compliance statement: One or more of the following individualized dose reduction techniques were utilized for this examination: 1. Automated exposure control. 2. Adjustment of the mA and/or kV according to patient size. 3. Use of iterative reconstruction technique. INDICATION: Trauma. Back pain. TECHNIQUE: CT of the thoracic and lumbar spine with multiplanar reformats COMPARISON: None FINDINGS: Thoracic spine: The thoracic spine is in normal anatomic alignment. No compression deformity. Facet joints are in normal anatomic alignment. No acute fractures. Visualized lungs are clear. Lumbar spine: Lumbar spine is in normal anatomic alignment. No acute fractures. No compression deformity. Facet joints are in normal anatomic alignment. IMPRESSION: No acute findings. Electronically signed by: Jens Luna DO (03/14/2018 5:33 PM) [facility]
[2018-03-14 17:45] VITALS: BP 138/78
== END 2018-03-14 18:36 | disposition home or self-care (01) ==
LOC: ER 15:10
DX: M54.42 Lumbago with sciatica, left side (principal); G89.11 Acute pain due to trauma; F31.9 Bipolar disorder, unspecified; E78.00 Pure hypercholesterolemia, unspecified; I10 Essential (primary) hypertension; W01.0XXA Fall on same level from slipping, tripping and stumbling without subsequent striking against object, initial encounter; Y93.01 Activity, walking, marching and hiking; Y92.89 Other specified places as the place of occurrence of the external cause; Y99.8 Other external cause status
CPT/HCPCS: 72125; 72128; 72131; 99284; J8540

== ENCOUNTER → 2019-03-15 | Outpatient (CLI) | payer OTHER ==
[~2019-03-15] MED LIST changes: -AMLO10TA6 PO; +AMLO10TA8 PO; +HYDR-3164 PO; -LAMO200T2 PO; +LAMO200T6 PO; +METH4TAB2 PO; +OMEP40CA45 PO; -OMEP40CA5 PO
--- NOTE | 2019-03-15 12:13 | KCIC ---
EXAM: Meneses scale and color Doppler renal artery sonogram. HISTORY: Hypertension. TECHNIQUE: Meneses scale and color Doppler sonographic imaging of the kidneys and renal arteries with spectral waveform analysis was performed. COMPARISON: None. FINDINGS: The right kidney measures 13.8 cm [id number]. The left kidney measures 13.0 cm [id number]. No solid or cystic renal lesion is seen. There is no hydronephrosis. The bladder is not assessed. The renal veins are patent. The aorta is normal in caliber. The proximal renal arteries are obscured due to bowel gas. There are normal peak systolic velocities within the mid and distal bilateral renal arteries. There are normal bilateral renal artery to aorta velocity ratios. There are normal renal resistive indices. IMPRESSION: 1. Unremarkable grayscale evaluation of the kidneys. 2. No evidence of hemodynamically significant stenosis involving the mid and distal renal arteries. The proximal renal arteries are obscured due to bowel gas. Electronically signed by: Lisa Guadarrama MD (03/15/2019 12:10 PM) [facility] [place]
== END | disposition home or self-care (01) ==
LOC: KCIC US 08:41
PROVIDERS: ATTEND Physician Assistant Medical
DX: N28.9 Disorder of kidney and ureter, unspecified (principal); I10 Essential (primary) hypertension
CPT/HCPCS: 76770